=== PATIENT | female | born 1960 | race African-American/Black ===

== ENCOUNTER 2016-08-17 07:53 | Emergency (ER) | payer BC, OTHER ==
[~2016-08-17] VITALS: Ht 165.1 cm; Wt 78.0 kg
[~2016-08-17 07:53] MED LIST: TRIA1CAP3 PO
[2016-08-17 08:01] VITALS: BP 133/99
--- NOTE | 2016-08-17 09:02 | PHYS DOC ---
Past Medical History Past Medical History: Hypertension Past Surgical History: No Surgical History Alcohol Use: Occasionally Drug Use: None Adult General Chief Complaint Chief Complaint: COUGH HPI HPI Patient is a 56 year old female presents to the emergency department with a history of cough, congestion and fever. Patient states she has taken over the counter medication with minimal relief. 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 Review of Systems Review of Systems Constitutional: subjective fever Eyes: Denies change in visual acuity, redness, or eye pain [] HENT: nasal congestion denies sore throat [] Respiratory: cough denies shortness of breath [] Cardiovascular: No additional information not addressed in HPI [] GI: Denies abdominal pain, nausea, vomiting, bloody stools or diarrhea [] : Denies dysuria or hematuria [] Musculoskeletal: Denies back pain or joint pain [] Integument: Denies rash or skin lesions [] Neurologic: Denies headache, focal weakness or sensory changes [] Current Medications Current Medications Current Medications Medications (Trade) Dose Ordered Sig/Adi Start Time Stop Time Status Last Admin Dose Admin Ibuprofen (Motrin) 600 mg 1X ONCE 08/17/16 09:15 08/17/16 09:16 DC 08/17/16 09:22 600 MG Pseudoephedrine HCl (Sudafed) 30 mg 1X ONCE 08/17/16 11:00 08/17/16 11:01 DC 08/17/16 10:49 30 MG Allergies Allergies Allergies Coded Allergies Type Severity Reaction Last Updated Verified No Known Drug Allergies 09/28/13 No Physical Exam Physical Exam Constitutional: Well developed, well nourished, no acute distress, non-toxic appearance. [] HENT: Normocephalic, atraumatic, bilateral external ears normal, oropharynx moist, no oral exudates, nose normal. Bilateral TM normal, throat without erythema, no exudate Eyes: PERRLA, EOMI, conjunctiva normal, no discharge. [] Neck: Normal range of motion, no tenderness, supple, no stridor. [] Cardiovascular:Heart rate regular rhythm, no murmur [] Lungs & Thorax: Bilateral breath sounds clear to auscultation [] Abdomen: Bowel sounds hypoactive, soft, no tenderness, no masses, no pulsatile masses. [] Skin: Warm, dry, no erythema, no rash. [] Back: No tenderness Extremities: No tenderness, no cyanosis, no clubbing, ROM intact, no edema. [] Neurologic: Alert and oriented X 3, normal motor function, normal sensory function, no focal deficits noted. [] Psychologic: Affect normal, judgement normal, mood normal. [] Current Patient Data Vital Signs Vital Signs Date Time Temp Pulse Resp B/P Pulse Ox O2 Delivery O2 Flow Rate FiO2 08/17/16 08:01 99.1 121 19 133/99 90 Room Air 99.1 Lab Values Laboratory Tests Test 08/17/16 08:05 08/17/16 10:35 08/17/16 10:49 Influenza Type A Antigen Negative (NEGATIVE) Influenza Type B Antigen Negative (NEGATIVE) Urine Collection Type Unknown Urine Color Yellow Urine Clarity Clear Urine pH 5.5 Urine Specific [place] 1.015 Urine Protein Negativemg/dL (NEG-TRACE) Urine Glucose (UA) Negativemg/dL (NEG) Urine Ketones (Stick) Negativemg/dL (NEG) Urine Blood Negative (NEG) Urine Nitrite Negative (NEG) Urine Bilirubin Negative (NEG) Urine Urobilinogen Dipstick 1.0mg/dL (0.2 mg/dL) Urine Leukocyte Esterase Negative (NEG) Urine RBC 0/HPF (0-2) Urine WBC Occ/HPF (0-4) Urine Squamous Epithelial Cells None/LPF Urine Bacteria Few/HPF (0-FEW) Urine Mucus Slight/LPF White Blood Count 9.7x10^3/uL (4.0-11.0) Red Blood Count 6.06x10^6/uL (3.50-5.40) H Hemoglobin 16.9g/dL (12.0-15.5) H Hematocrit 51.4% (36.0-47.0) H Mean Corpuscular Volume 85fL (79-100) Mean Corpuscular Hemoglobin 28pg (25-35) Mean Corpuscular Hemoglobin Concent 33g/dL (31-37) Red Cell Distribution Width 15.8% (11.5-14.5) H Platelet Count 164x10^3/uL (140-400) Neutrophils (%) (Auto) 82% (31-73) H Lymphocytes (%) (Auto) 9% (24-48) L Monocytes (%) (Auto) 7% (0-9) Eosinophils (%) (Auto) 1% (0-3) Basophils (%) (Auto) 1% (0-3) Neutrophils # (Auto) 7.9x10^3uL (1.8-7.7) H Lymphocytes # (Auto) 0.9x10^3/uL (1.0-4.8) L Monocytes # (Auto) 0.7x10^3/uL (0.0-1.1) Eosinophils # (Auto) 0.1x10^3/uL (0.0-0.7) Basophils # (Auto) 0.1x10^3/uL (0.0-0.2) Sodium Level 139mmol/L (136-145) Potassium Level 3.4mmol/L (3.5-5.1) L Chloride Level 101mmol/L (98-107) Carbon Dioxide Level 26mmol/L (21-32) Anion Gap 12 (6-14) Blood Urea Nitrogen 18mg/dL (7-20) Creatinine 0.9mg/dL (0.6-1.0) Estimated GFR (Cockcroft-Gault) 77.8 BUN/Creatinine Ratio 20 (6-20) Glucose Level 111mg/dL (70-99) H Calcium Level 9.2mg/dL (8.5-10.1) Total Bilirubin 0.6mg/dL (0.2-1.0) Aspartate Amino Transferase (AST) 17U/L (15-37) Alanine Aminotransferase (ALT) 25U/L (14-59) Alkaline Phosphatase 123U/L (46-116) H Total Protein 8.1g/dL (6.4-8.2) Albumin 3.9g/dL (3.4-5.0) Albumin/Globulin Ratio 0.9 (1.0-1.7) L Laboratory Tests 08/17/16 10:49 Laboratory Tests 08/17/16 10:49 EKG EKG [] Radiology/Procedures Radiology/Procedures [] Course & Med Decision Making Course & Med Decision Making Pertinent Labs and Imaging studies reviewed. (See chart for details) Fluids as well as are negative. Patient has been having symptoms for the last 2 days. We'll recommend that she use [id number] cough medication as well as Tylenol and ibuprofen for fever chills or generalized body aches and discomfort. Also recommended drink plenty of fluids such as water, propel or Gatorade. Signs and symptoms to return back to emergency department as been provided. Patient agrees with discharge instructions treatment regimens and follow-up recommendations. Patient has been provided with discharge instructions although stated to the nurse that she felt as though the emergency room had not done anything for her as no chest x-ray no labs had been obtained. Patient is requesting CBC chemistries and a chest x-ray to be obtained. Chest x- ray was negative for any apparent findings in the chest there was multiple soft tissue nodule suggesting neurofibroma hematosis. Patient will be recommended to follow-up with primary care regards to this. CBC and chemistries were both negative. Potassium was slightly low at 3.4 patient will be discharged home with previous discharge instructions. [] Dragon Disclaimer Dragon Disclaimer This electronic medical record was generated, in whole or in part, using a voice recognition dictation system. Departure Departure Impression: Primary Impression: Viral infection Disposition: HOME, SELF-CARE Condition: STABLE Referrals: SHAYY DELACRUZ MD (PCP) Patient Instructions: Viral Infections, [id number] Additional Instructions: Your influenza swabs were negative. Her CBC was negative your chemistries were negative. Your chest x-ray identifies multiple soft tissue nodule suggesting neurofibromatosis. He will need to follow-up with your primary care physician for further evaluation. Tylenol or ibuprofen for fever chills or generalized body aches and discomfort. Drink plenty of fluids such as water propel or Gatorade. You may also use [id number] cough medications for cough and congestion. Follow-up through primary care physician next 3-5 days. Return back to emergency prior signs symptoms of become worse. DAXA CHIN NP Aug 17, 2016 09:02
[2016-08-17] MEDS ORDERED: IBUPROFEN 600 MG TABLET. PO ONE (09:15)
[2016-08-17 09:46] LABS: OBC FLU VALID
[2016-08-17 10:54] LABS: BILIRUBIN,URINE NEGATIVE (NEG); GLUCOSE,URINE NEGATIVE (NEG); NITRITE,URINE NEGATIVE (NEG); PH,URINE 5.5; PROTEIN,URINE NEGATIVE (NEG-TRACE)
--- NOTE | 2016-08-17 10:54 | RAD ---
Indication cough and fever. PA and lateral views of the chest were obtained. Note is made of a previous examination July 06, 2007. There are multiple soft tissue nodules likely reflecting neurofibromatosis. The heart and pulmonary vessels are unremarkable. There is a bleb or bulla in the right upper lobe similar to slightly larger than on the previous exam. Soft tissue masses overlying the bleb or bulla may be in the subcutaneous soft tissues given the innumerable masses seen on the lateral view. The heart and pulmonary vessels appear normal. An acute parenchymal infiltrate is not seen. IMPRESSION: No acute finding apparent in the chest. Multiple soft tissue nodules suggesting neurofibromatosis. Bleb or bulla in the right upper lobe similar to the previous exam
[2016-08-17] MEDS ORDERED: PSEUDOEPHEDRINE 30 MG TABLET. PO ONE (11:00)
[2016-08-17 11:04] LABS: BACTERIA,URINE FEW /HPF (0-FEW); RBC,URINE 0 /HPF (0-2); WBC,URINE OCC /HPF (0-4)
[2016-08-17 11:08] LABS: CALCIUM 9.2 mg/dL (8.5-10.1); CREATININE 0.9 mg/dL (0.6-1.0); GFR 77.8; POTASSIUM 3.4 mmol/L (3.5-5.1)
[2016-08-17 11:11] LABS: BASO # 0.1 x10^3/uL (0.0-0.2); BASO % 1 % (0-3); EOS % 1 % (0-3); HEMATOCRIT 51.4 % (36.0-47.0); HEMOGLOBIN 16.9 g/dL (12.0-15.5); LYMPH # 0.9 x10^3/uL (1.0-4.8); LYMPH % 9 % (24-48); MEAN CORPUSCULAR HEMOGLOBIN 28 pg (25-35); MEAN CORPUSCULAR HGB CONC 33 g/dL (31-37); MEAN CORPUSCULAR VOLUME 85 fL (79-100); MONO % 7 % (0-9); NEUT % 82 % (31-73); PLATELET COUNT 164 x10^3/uL (140-400); RED BLOOD COUNT 6.06 x10^6/uL (3.50-5.40); RED CELL DISTRIBUTION WIDTH 15.8 % (11.5-14.5); WHITE BLOOD COUNT 9.7 x10^3/uL (4.0-11.0)
[2016-08-17 11:14] LABS: ALBUMIN 3.9 g/dL (3.4-5.0); ALBUMIN/GLOBULIN RATIO 0.9 (1.0-1.7); TOTAL BILIRUBIN 0.6 mg/dL (0.2-1.0); TOTAL PROTEIN 8.1 g/dL (6.4-8.2)
== END 2016-08-17 11:36 | disposition home or self-care (01) ==
LOC: ER 07:53
DX: B34.9 Viral infection, unspecified (principal); I10 Essential (primary) hypertension
CPT/HCPCS: 36415; 71020; 80053; 81001; 85027; 87804; 99285

== ENCOUNTER → 2018-02-24 | Outpatient (CLI) | payer BC ==
--- NOTE | 2018-02-25 12:56 | RAD ---
DATE: 02/24/2018 EXAM: DIGITAL SCREEN BILAT W/CAD HISTORY: Routine screening COMPARISON: 03/07/2016 This study was interpreted with the benefit of Computerized Aided Detection (CAD). The breast parenchyma shows scattered fibroglandular densities. Breast parenchyma level B. FINDINGS: The patient has neurofibromatosis with multiple bilateral cutaneous nodules complicated the appearance of the breasts. No new or enlarging breast density is seen. No suspicious microcalcifications are evident. IMPRESSION: Stable mammograms without evidence of malignancy. BI-RADS CATEGORY: 3 PROBABLY BENIGN FINDING(S)-SHORT INTERVAL FOLLOW-UP SUGGESTED RECOMMENDED FOLLOW-UP: 12M 12 MONTH FOLLOW-UP PQRS compliance statement: Patient information was entered into a reminder system with a target due date for the next mammogram. Mammography is a sensitive method for finding small breast cancers, but it does not detect them all and is not a substitute for careful clinical examination. A negative mammogram does not negate a clinically suspicious finding and should not result in delay in biopsying a clinically suspicious abnormality. "Our facility is accredited by the [employer] Mammography [employer]."
== END | disposition home or self-care (01) ==
LOC: MAMMO 15:10
PROVIDERS: ATTEND Family Medicine
DX: Z12.31 Encounter for screening mammogram for malignant neoplasm of breast (principal); I10 Essential (primary) hypertension; Z83.79 Family history of other diseases of the digestive system
CPT/HCPCS: 77067

== ENCOUNTER → 2019-12-26 | Outpatient (CLI) | payer SELFPAY ==
--- NOTE | 2019-12-26 17:01 | RAD ---
BILATERAL SCREENING MAMMOGRAM History: Routine screening. Neurofibromatosis. Comparison: 04/13/2014, 03/07/2016, 02/24/2018. Technique: Routine bilateral digital mammogram views were obtained. Findings: Breast Tissue Density B : There are scattered areas of fibroglandular density. There are no dominant masses, suspicious microcalcifications, or architectural distortion. IMPRESSION: No mammographic evidence of malignancy. Recommend routine screening. BI-RADS category 1: Negative. The images were reviewed with computer aided detection. Patient information is entered into the reminder system with a target due date for the next screening mammogram. Mammography is the most sensitive method for finding small breast cancers, but it does not detect them all and is not a substitute for careful clinical examination. A negative mammogram does not negate a clinically suspicious finding and should not result in delay in biopsying a clinically suspicious abnormality. "Our facility is accredited by the [employer] Mammography [employer]." Electronically signed by: Pranay Galaviz MD (12/26/2019 4:59 PM) [id number]
== END | disposition home or self-care (01) ==
LOC: MAMMO 11:14
PROVIDERS: ATTEND Nurse Practitioner Family
DX: Z12.31 Encounter for screening mammogram for malignant neoplasm of breast (principal)
CPT/HCPCS: 77067

== ENCOUNTER → 2020-11-13 | Outpatient (CLI) | payer OTHER | LOC: PF 10:58 | PROVIDERS: ATTEND Anesthesiology Pain Medicine | DX: R06.02 Shortness of breath (principal) | CPT/HCPCS: 94060; 94640; 94664 ==

== ENCOUNTER 2021-04-29 11:44 | Emergency (ER) | payer SELFPAY ==
[~2021-04-29] VITALS: Ht 165.1 cm; Wt 75.0 kg
--- NOTE | 2021-04-29 12:34 | PHYS DOC ---
Past Medical History Past Medical History: Hypertension Past Medical History Neurofibromatosis Past Surgical History: No Surgical History Smoking Status: Current Every Day Smoker Alcohol Use: Occasionally Drug Use: None General Adult EDM: Chief Complaint: ABDOMINAL PAIN HPI: HPI: Patient is a 60 year old female here with left lower quadrant abdominal pain which began last night. She denies nausea, vomiting, anorexia, diarrhea, constipation, melena, hematochezia. She denies urinary symptoms. She denies radiation of pain. No previous similar symptoms. No previous abdominal surgery. No prior history of diverticulitis. She denies back or flank pain. She denies dizziness. She denies chest pain or dyspnea. She denies cough. Review of Systems: Review of Systems: Constitutional: Denies fever or chills. [] HENT: Denies nasal congestion or sore throat. [] Respiratory: Denies cough or shortness of breath. [] Cardiovascular: Denies chest pain or edema. [] GI: Reports abdominal pain, left lower quadrant. Denies nausea, vomiting, diarrhea, constipation, melena or hematochezia. : Denies urinary symptoms. Musculoskeletal: Denies back pain or joint pain. [] Integument: Denies rash. Chronic cutaneous neurofibromatosis. Neurologic: Denies headache, focal weakness or sensory changes. [] Psychiatric: Denies depression or anxiety. [] Heart Score: C/O Chest Pain: No Risk Factors: Risk Factors: DM, Current or recent (<one month) smoker, HTN, HLP, family history of CAD, obesity. Risk Scores: Score 0 - 3: 2.5% MACE over next 6 weeks - Discharge Home Score 4 - 6: 20.3% MACE over next 6 weeks - Admit for Clinical Observation Score 7 - 10: 72.7% MACE over next 6 weeks - Early Invasive Strategies Allergies: Allergies: Allergies Coded Allergies Type Severity Reaction Last Updated Verified No Known Drug Allergies 09/28/13 No Physical Exam: PE: Constitutional: Well developed, well nourished, no acute distress, non-toxic appearance. [] HENT: Normocephalic, atraumatic, mucus membranes are moist. Eyes: There are clear, anicteric. Neck: Normal range of motion, no tenderness, supple, no stridor. [] Cardiovascular:Heart rate regular rhythm, was 2 radial and dorsalis pedis pulses bilaterally. Lungs & Thorax: Bilateral breath sounds clear to auscultation [] Abdomen: Abdomen soft, nondistended, normal bowel sounds, left lower quadrant tenderness to palpation. Mild voluntary guarding. No rebound tenderness. No pulsatile mass, no audible bruit. No CVA tenderness. No flank or abdominal ecchymoses noted. No masses organomegaly palpated. Skin: Warm, dry, no erythema, no rash. No cutaneous neurofibromatosis. Back: No tenderness, no CVA tenderness. [] Extremities: No tenderness, no cyanosis, no clubbing, ROM intact, no edema. No calf tenderness. Neurologic: Alert and oriented X 3, normal motor function, normal sensory function, no focal deficits noted. [] Psychologic: Affect normal, judgement normal, mood normal. [] EKG: EKG: [] Radiology/Procedures: Radiology/Procedures: IMAGING REPORT Signed PATIENT: PATRICIA WASHBURN MACCOUNT: [id number] : 1960 LOCATION: ER AGE: 60 SEX: F EXAM STATUS: PRE ER ORD. PHYSICIAN: FRANSISCO ESCOBAR DO REASON: left lower quadrant abdominal pain PROCEDURE: CT ABD PELV W/ IV CONTRST ONLY EXAM: CT Abdomen and Pelvis with IV contrast CLINICAL HISTORY: left lower quadrant abdominal pain. COMPARISON: none TECHNIQUE: Helical CT of the abdomen and pelvis was performed following the administration of intravenous contrast. Axial, coronal and sagittal reformatted images were generated. PQRS compliance statement - One or more of the following individualized dose reduction techniques were utilized for this study: 1. Automated exposure control 2. Adjustment of the mA and/or kV according to patient size 3. Use of iterative reconstruction technique FINDINGS: Lower Chest: Emphysematous changes are seen in the lung bases with predominantly peripheral cystic change. Abdomen and Pelvis: Liver, spleen, adrenal glands and pancreas are unremarkable. Calcified gallstones are seen within the distended gallbladder. No biliary ductal dilatation. Symmetric nephrograms. Simple appearing right renal cyst measuring 12 mm. No hydronephrosis. No abdominal or pelvic lymphadenopathy. Aorta mildly atherosclerotic calcifications. Infiltration about a sigmoid colonic diverticulum calcified uterine fibroids are seen. Small fat-containing inguinal hernias. Small fat- containing periumbilical hernia. No abdominal or pelvic ascites. No abdominal or pelvic lymphadenopathy. No loculated fluid collection. Bones: No aggressive osseous lesion is seen. IMPRESSION: 1. Infiltration about sigmoid colonic diverticula consistent with acute diverticulitis. No discrete loculated fluid collection or perforation. 2. Fat-containing periumbilical and inguinal hernias. 3. Cholelithiasis without CT evidence for acute cholecystitis. 4. Calcified uterine fibroids Electronically signed by: Kishore De La Rosa MD (04/29/2021 3:04 PM) [facility] DICTATED and SIGNED BY: KISHORE DE LA ROSA MD DATE: 04/29/21 [id number] 0 Course & Med Decision Making: Course & Med Decision Making Pertinent Labs and Imaging studies reviewed. (See chart for details) The patient IV fluids, IV Fentanyl and IV Toradol here. She has a benign, non- surgical abdominal exam at this time. CT findings indicate diverticulitis. No indication for further invasive exams or admission currently. I recommend that she follow up with her primary care physician, as well as with outpatient GI. I discussed home care instructions. Strict return precautions are given. Dragon Disclaimer: Dragon Disclaimer: This electronic medical record was generated, in whole or in part, using a voice recognition dictation system. Departure Departure Impression: Primary Impression: Acute diverticulitis Disposition: HOME / SELF CARE / HOMELESS Condition: STABLE Referrals: GREGG SANCHEZ (PCP) Patient Instructions: Diverticulitis Additional Instructions: Take the full course of antibiotics. Use the pain medicine and nausea medicine as needed/as directed. Return immediately for more severe pain, uncontrolled vomiting, dehydration, fever 100.4 or higher or other concerns. Your infection should improve after antibiotics. Please contact your primary care physician for follow-up. You may need to see outpatient GI for colonoscopy if you have recurrent symptoms. Scripts Hydrocodone Bit/Acetaminophen (HYDROCODONE-APAP 5-325 ) 1 Tab Tablet 1 TAB PO PRN Q6HRS PRN for PAIN, #15 TAB 0 Refills Prov: FRANSISCO ESCOBAR DO 04/29/21 Ondansetron Hcl (ZOFRAN) 4 Mg Tablet 4 MG PO PRN TID PRN for VOMITING, #20 TAB 0 Refills nausea/vomiting Prov: FRANSISCO ESCOBAR DO 04/29/21 Metronidazole (METRONIDAZOLE) 500 Mg Tablet 1 TAB PO TID for 10 Days, #30 TAB 0 Refills Prov: FRANSISCO ESCOBAR DO 04/29/21 Levofloxacin (LEVOFLOXACIN) 750 Mg Tablet 1 TAB PO DAILY for 10 Days, #10 TAB 0 Refills Prov: FRANSISCO ESCOBAR DO 04/29/21 FRANSISCO ESCOBAR DO Apr 29, 2021 12:33
[2021-04-29] MEDS ORDERED: fentaNYL PF VIAL 100 MCG/2 ML VIAL IVP ONE (12:45)
[2021-04-29] MEDS ORDERED: IV NORMAL SALINE 1000ML BAG 1,000 ML IV ONE (12:45)
[2021-04-29 13:15] LABS: BASO # 0.1 x10^3/uL (0.0-0.2); BASO % 1 % (0-3); EOS # 0.2 x10^3/uL (0.0-0.7); EOS % 1 % (0-3); HEMATOCRIT 53.2 % (36.0-47.0); HEMOGLOBIN 17.8 g/dL (12.0-15.5); LYMPH % 6 % (24-48); MEAN CORPUSCULAR HEMOGLOBIN 28 pg (25-35); MEAN CORPUSCULAR HGB CONC 34 g/dL (31-37); MEAN CORPUSCULAR VOLUME 84 fL (79-100); MONO % 6 % (0-9); NEUT % 86 % (31-73); PLATELET COUNT 190 x10^3/uL (140-400); RED BLOOD COUNT 6.33 x10^6/uL (3.50-5.40); RED CELL DISTRIBUTION WIDTH 16.3 % (11.5-14.5); WHITE BLOOD COUNT 16.2 x10^3/uL (4.0-11.0)
[2021-04-29 13:17] LABS: BILIRUBIN,URINE NEGATIVE (NEG); CLARITY,URINE CLEAR; COLOR,URINE YELLOW; NITRITE,URINE NEGATIVE (NEG); PROTEIN,URINE NEGATIVE (NEG-TRACE)
[2021-04-29 13:22] LABS: CALCIUM 8.9 mg/dL (8.5-10.1); CREATININE 0.7 mg/dL (0.6-1.0); GFR 102.6; POTASSIUM 3.2 mmol/L (3.5-5.1)
[2021-04-29 13:28] LABS: ALBUMIN 3.6 g/dL (3.4-5.0); ALBUMIN/GLOBULIN RATIO 0.8 (1.0-1.7); BACTERIA,URINE 0 /HPF (0-FEW); RBC,URINE 0 /HPF (0-2); TOTAL BILIRUBIN 0.8 mg/dL (0.2-1.0); TOTAL PROTEIN 7.9 g/dL (6.4-8.2); WBC,URINE 0 /HPF (0-4)
[2021-04-29] MEDS ORDERED: IOHEXOL 300 MG/ML 100ML VIAL. IV ONE (13:45)
[2021-04-29 13:52] LABS: % ATYL 3 % (0-0); % BANDS 5 % (0-9); % BASOS 1 % (0-3); % LYMPHS 5 % (24-48); % MONOS 10 % (0-10); % SEGS 76 % (35-66)
[2021-04-29 13:53] LABS: PLT ESTIMATE ADEQUATE (ADEQUATE)
[2021-04-29] MEDS ORDERED: CONTRAST GIVEN. MC PRN (14:00)
--- NOTE | 2021-04-29 15:06 | RAD ---
EXAM: CT Abdomen and Pelvis with IV contrast CLINICAL HISTORY: left lower quadrant abdominal pain. COMPARISON: none TECHNIQUE: Helical CT of the abdomen and pelvis was performed following the administration of intrave nous contrast. Axial, coronal and sagittal reformatted images were generated. PQRS compliance statement - One or more of the following individualized dose reduction techniques wer e utilized for this study: 1. Automated exposure control 2. Adjustment of the mA and/or kV according to patient size 3. Use of iterative reconstruction technique FINDINGS: Lower Chest: Emphysematous changes are seen in the lung bases with predominantly peripheral cystic change. Abdomen and Pelvis: Liver, spleen, adrenal glands and pancreas are unremarkable. Calcified gallstones are seen within the distended gallbladder. No biliary ductal dilatation. Symmetric nephrograms. Simple appearing right renal cyst measuring 12 mm. No hydronephrosis. No abdominal or pelvic lymphadenopathy. Aorta mildly atherosclerotic calcifications. Infiltration abo ut a sigmoid colonic diverticulum calcified uterine fibroids are seen. Small fat-containing inguinal hernias. Small fat-containing periumbilical hernia. No abdominal or pelvic ascites. No abdominal or p elvic lymphadenopathy. No loculated fluid collection. Bones: No aggressive osseous lesion is seen. IMPRESSION: 1. Infiltration about sigmoid colonic diverticula consistent with acute diverticulitis. No discrete loculated fluid collection or perforation. 2. Fat-containing periumbilical and inguinal hernias. 3. Cholelithiasis without CT evidence for acute cholecystitis. 4. Calcified uterine fibroids Electronically signed by: Kishore Manzo MD (04/29/2021 3:04 PM) [facility]
[2021-04-29] MEDS ORDERED: KETOROLAC 15 MG/ML VIAL. IVP ONE (15:30)
[2021-04-29] MEDS ORDERED: METR-34 PO (15:46)
[2021-04-29] MEDS ORDERED: HYDR-2761 PO (15:46)
[2021-04-29] MEDS ORDERED: ONDA4TAB7 PO (15:46)
[2021-04-29] MEDS ORDERED: LEVO750T5 PO (15:46)
[2021-04-29 15:54] VITALS: BP 124/58
== END 2021-04-29 16:05 | disposition home or self-care (01) ==
LOC: ER 11:44
DX: K57.92 Diverticulitis of intestine, part unspecified, without perforation or abscess without bleeding (principal); I10 Essential (primary) hypertension; F17.200 Nicotine dependence, unspecified, uncomplicated
CPT/HCPCS: 36415; 74177; 80053; 81001; 83690; 85007; 85025; 96361; 96374; 96375; 99285; J1885; J3010; J7030; Q9967